=== PATIENT | female | born 1985 ===

== ENCOUNTER 2020-02-14 17:29 | Inpatient (IN) | payer OTHER ==
[2020-02-14] MEDS ORDERED: OXYTOCIN 30 UNITS in 0.9% NS 30 UNIT/500 ML INFUS.BAG IVPB ONE (18:20)
[2020-02-14] MEDS: ELECTROLYTE-148 SOLN 1,000 ML IV SCH (18:20)
--- NOTE | 2020-02-14 18:24 | HP ---
Past Medical History - Primary Care Physician PCP:: Karishma Garibay - Admission Chief Complaint: UC. Pt is seen today in the office BP 149/108 mmhg, denies STEVENSON, epigastric pain, visual disturbances. H/O IUFD @ 36 weeks History of Present Illness: 34 yo EDC 03/06/2020, EGA 37 weeks c/o mild UC; Pt is seen today in the office BP 149/108 mmhg, denies STEVENSON, epigastric pain, visual disturbances H/O IUFD @ 36 weeks PMHX - obesity PSHX - suction D+C, LEEP [employer] [facility] PROJECT MANAGER HX - G1 VTOP G2 IUFD @ 36 weeks G3 present Morbid obesity PIH Last sono - EFW 87% History Source: Patient Limitations to Obtaining History: No Limitations - Past Medical History ...: 3 ...Para: 1 ...Term: 0 ...: 1 ...Spon : 0 ...Induced : 1 ...Living Children: 0 ...Multiple Gestation: 0 ...LMP: 05/17/19 (unknown) ... Weeks Gestation by Dates: 37 ...EDC by Sono: 02/05/20 - Past Surgical History Past Surgical History: Yes: None Hx Myomectomy: No Hx Transabdominal Cerclage: No Additional Surgical History: Suction D+C for VTOP. LEEP - Smoking History Smoking history: Never smoked Have you smoked in the past 12 months: No - Alcohol/Substance Use Hx Alcohol Use: No History of Substance Use: reports: None - Social History Usual Living Arrangement: Yes: With Significant Other Occupation: Animal longterm History of Recent Travel: No Home Medications - Allergies Allergies/Adverse Reactions: Allergies Allergy/AdvReac Type Severity Reaction Status Date / Time No Known Allergies Allergy Verified 02/08/20 15:45 - Home Medications Home Medications: Ambulatory Orders Aspirin 1 tab PO DAILY 01/13/20 Folic Acid 1 tab PO DAILY 01/13/20 Vitamins (Sjr) - 1 tab PO DAILY 01/13/20 Pyridoxine HCl (B-6) [Vitamin B6 -] 1 tab PO DAILY 01/13/20 Family Medical History Family Hx Cardiac Disorders: Mother Family Hx Respiratory Disorders: Mother Review of Systems - Review of Systems Constitutional: reports: No Symptoms Eyes: reports: No Symptoms HENT: reports: No Symptoms Neck: reports: No Symptoms Cardiovascular: reports: No Symptoms Respiratory: reports: No Symptoms Gastrointestinal: reports: No Symptoms Genitourinary: reports: Pain Breasts: reports: No Symptoms Reported Musculoskeletal: reports: No Symptoms Integumentary: reports: No Symptoms Neurological: reports: No Symptoms Endocrine: reports: No Symptoms Hematology/Lymphatic: reports: No Symptoms Psychiatric: reports: No Symptoms Physical Exam - Maternity Constitutional: Yes: Well Nourished, No Distress Eyes: Yes: WNL HENT: Yes: WNL Neck: Yes: WNL Cardiovascular: Yes: WNL Lungs: Clear to auscultation Breast(s): Yes: WNL - Abdominal Exam/OB Fundal Height: 40 Number of Fetuses: Single Presentation: Vertex Contractions: Yes Regularity: Irregular Intensity: Mild Monitor Mode: External Heart Rate Location: [facility] Category: I Accelerations: Uniform Decelerations: None - Vaginal Exam/OB Vaginal Bleeding: No Dilatation (cm): 1-2 Effacement (%): 50 Amniotic Membrane Status: Intact Presentation: Vertex/Position Station: -1 - Physical Exam Musculoskeletal: Yes: WNL Extremities: Yes: WNL Edema: Yes Edema: LLE: 2+, RLE: 2+ Integumentary: Yes: WNL Deep Tendon Reflex Grade: Normal +2 ...Motor Strength: WNL Hemorrhage Risk Assessment - Risk Factors Medium Risk Factors: Yes: EFW greater than 4000g Risk Score: 1 Risk Level: Medium Risk Problem List - Problems (1) PIH ( induced hypertension), antepartum Code(s): O13.9 - GESTATIONAL HTN W/O SIGNIFICANT PROTEINURIA, UNSP TRIMESTER (2) History of IUFD Code(s): Z87.59 - PERSONAL HISTORY OF COMP OF PREG, CHLDBRTH AND THE PUERP (3) 37 weeks gestation of Code(s): Z3A.37 - 37 WEEKS GESTATION OF (4) Morbid obesity Code(s): E66.01 - MORBID (SEVERE) OBESITY DUE TO EXCESS CALORIES Assessment/Plan Admit to PIH labs Pitocin augmentation Close observation
[2020-02-14] MEDS: OXYTOCIN 30 UNITS in 0.9% NS 30 UNIT/500 ML INFUS.BAG IVPB SCH (18:30)
[2020-02-14 19:13] VITALS: BMI 40.7
[2020-02-14 19:42] LABS: BASO % 0.2 % (0-2.0); EOS % 0.1 % (0-4.5); HEMATOCRIT 34.2 % (32.4-45.2); HEMOGLOBIN 11.7 GM/dL (10.7-15.3); LYMPH % 10.5 % (8-40); MCH 29.1 pg (25.7-33.7); MCHC 34.1 g/dl (32.0-36.0); MEAN CELL VOLUME 85.2 fl (80-96); MEAN PLT VOLUME 11.8 fl (7.5-11.1); MONO % 5.2 % (3.8-10.2); PLATELET COUNT 149 K/MM3 (134-434); RBC 4.02 M/mm3 (3.60-5.2); WHITE BLOOD COUNT 9.5 K/mm3 (4.0-10.0)
[2020-02-14 19:56] LABS: INR 0.93 (0.83-1.09)
[2020-02-14 19:59] LABS: ACTIVATED PTT 28.1 SECONDS (25.2-36.5)
[2020-02-14 20:12] LABS: BLOOD UREA NITROGEN 12.9 mg/dL (7-18); CREATININE 0.6 mg/dL (0.55-1.3); POTASSIUM 4.5 mmol/L (3.5-5.1)
[2020-02-14 22:08] LABS: URIC ACID 4.4 mg/dL (2.6-7.2)
[2020-02-14] MEDS ORDERED: OXYTOCIN 20 UNITS in 0.9% NS 20 UNIT/1,000 ML INFUS.BAG IV ONE (23:28)
[2020-02-14] MEDS ORDERED: ceFAZolin 2 GRAM PREMIX BAG IVPB ONE (23:39)
[2020-02-14] MEDS ORDERED: CITRIC ACID/SODIUM CITRATE 30 ML UNIT-DOSE CUP PO ONE (23:40)
--- NOTE | 2020-02-14 23:48 | PN ---
Progress Note (short form) - Note Progress Note: Pt c/o mild UC BP 148/89, denies PIH symptoms EFM change on Baseline 90 - 100, no deceleration, marked variability, cat 2 TOCO irreg UC VE -2-3 cm, 80%, -1 AROM - clear fluid IFM apply Discussed at length the findings with pt and the FOB. Due to cat 2 tracing remote from delivery a decision for cesarian delivery made. Risks, benefits, alternatives of CD VS Vaginal delivery well understood by pt and FOB. All questions answered. Pt signed consent The anesthesia, plastics bench mechanic and certified surgical tech/first assistant called Problem List - Problems (1) PIH ( induced hypertension), antepartum Code(s): O13.9 - GESTATIONAL HTN W/O SIGNIFICANT PROTEINURIA, UNSP TRIMESTER (2) History of IUFD Code(s): Z87.59 - PERSONAL HISTORY OF COMP OF PREG, CHLDBRTH AND THE PUERP (3) 37 weeks gestation of Code(s): Z3A.37 - 37 WEEKS GESTATION OF (4) Morbid obesity Code(s): E66.01 - MORBID (SEVERE) OBESITY DUE TO EXCESS CALORIES
[2020-02-14] MEDS ORDERED: morphine SULFATE/PF 0.5 MG/ML (2cc Syringe - QUVA) EP ONE (23:55)
[2020-02-15] MEDS ORDERED: morphine SULFATE/PF 0.5 MG/ML (2cc Syringe - QUVA) ONE (00:01)
[2020-02-15] MEDS ORDERED: ceFAZolin SODIUM 1 GM VIAL ONE (00:02)
[2020-02-15] MEDS ORDERED: OXYTOCIN 10 UNITS/ML VIAL ONE (00:03)
--- NOTE | 2020-02-15 00:40 | PN ---
Progress Note (short form) - Note Progress Note: Attended rpt. C/S( previous C/s in labor)/ PIH for this 34yrs old mother with PNL-Nl, GBS- neg H/O GDM delivered - cried soon after suctioned & dried Cord 3V 9/9 PE exam: clinically stable - pink well perfused HEENT- normocephalic, AFOF, Chest B/L symm. B/L good air entry No heart murmur, All pulses 2+ No organomegaly Nl female FROM , nl hip exam Good tone and activity RNBC Watch for Resp distress Encourage BF/ Bonding Follow Blood sugar
[2020-02-15] MEDS: OXYTOCIN 20 UNITS in 0.9% NS 20 UNIT/1,000 ML INFUS.BAG IV SCH (01:20)
[2020-02-15] MEDS ORDERED: IBUPROFEN 800 MG/8 ML IJ IVPB PRN (01:26)
[2020-02-15] MEDS ORDERED: SENNOSIDES/DOCUSATE COMBO (SENNA PLUS) TABLET (UD) PO PRN (01:26)
[2020-02-15] MEDS ORDERED: oxyCODONE HCL 5 MG TABLET PO PRN (01:26)
[2020-02-15] MEDS ORDERED: MAGNESIUM HYDROX 2400MG/30ML ORAL SUSPENSION 30 ML CUP PO ONE (01:29)
[2020-02-15] MEDS ORDERED: ACETAMINOPHEN 1000 MG/100 ML VIAL (NON FORMULARY) IVPB PRN (01:30)
--- NOTE | 2020-02-15 01:36 | OP ---
Operative Note - Note: Operative Date: 02/15/20 Pre-Operative Diagnosis: 34 yo @ 37 weeks PIH. H/O IUFD @ 36 weeks. Cat 2 tracing remote from [facility] Operation: Primary C/S via Pfannenstiel incision Findings: Uterus, tubes, ovaries wnl Baby girl born 9/9 Cord gases and blood collected Placenta and membranes complete Surgeon: Karishma Garibay Chain Dyer: Hunter Parker Anesthesiologist/SERVICE ORDER TAKER: Trae Genao Anesthesia: Spinal Specimens Removed: Placenta and membranes. Cord gases and blood Estimated Blood Loss (mls): 800 Operative Report Dictated: No
[2020-02-15] MEDS ORDERED: OXYTOCIN 20 UNITS in 0.9% NS 20 UNIT/1,000 ML INFUS.BAG IV ONE (02:40)
[2020-02-15] MEDS: ONDANSETRON 4 MG/2 ML VIAL IVPUSH PRN ×2 (03:39→10:11)
[2020-02-15] MEDS: CEFAZOLIN 1 GM/D5W 1 GM/50 ML BAG IVPB SCH ×3 (03:45→17:45)
[2020-02-15 04:06] LABS: CORD BASE EXCESS -6.9 mmol/L (0-2); CORD PCO2 50.2 mmHg (30-78); CORD pH 7.24 (7.14-7.44)
--- NOTE | 2020-02-15 07:45 | PN ---
Progress Note (short form) - Note Progress Note: I assisted Dr. Garibay at c/section for the entirety of the case.
[2020-02-15] MEDS: ENOXAPARIN NA (PORCINE) 40 MG/0.4 ML DISP.SYRIN SQ SCH (10:15)
[2020-02-15] MEDS: SIMETHICONE 80 MG TAB.CHEW (FP) PO PRN ×2 (15:41→23:15)
[2020-02-15] MEDS: IBUPROFEN 600 MG TABLET (FP) PO PRN ×2 (15:41→23:16)
[2020-02-15] MEDS: ACETAMINOPHEN 325 MG TABLET (FP) PO PRN ×2 (15:42→23:15)
--- NOTE | 2020-02-15 17:38 | PN ---
Post Progress Note Type of Delivery: Primary C/S Vital Signs: Vital Signs Temperature 97.9 F 02/15/20 14:00 Pulse Rate 70 02/15/20 14:00 Respiratory Rate 20 02/15/20 17:00 Blood Pressure 118/63 02/15/20 14:00 O2 Sat by Pulse Oximetry (%) 97 02/15/20 14:00 Breast Exam: Yes: Soft Uterus: Yes: Fundus Firm, Fundus below umbilicus Incision: Yes: Dressing dry and intact Abdomen/GI: Yes: Abdomen soft, Tender Lochia: Yes: Rubra Lochia, amount: Small Extremities: Yes: Calves non-tender Activity: Ambulating - Labs Labs: CBC WBC 9.5 K/mm3 (4.0-10.0) 02/14/20 18:30 RBC 4.02 M/mm3 (3.60-5.2) 02/14/20 18:30 Hgb 11.7 GM/dL (10.7-15.3) 02/14/20 18:30 Hct 34.2 % (32.4-45.2) 02/14/20 18:30 MCV 85.2 fl (80-96) 02/14/20 18:30 MCH 29.1 pg (25.7-33.7) 02/14/20 18:30 MCHC 34.1 g/dl (32.0-36.0) 02/14/20 18:30 RDW 13.0 % (11.6-15.6) 02/14/20 18:30 Plt Count 149 K/MM3 (134-434) 02/14/20 18:30 MPV 11.8 fl (7.5-11.1) H 02/14/20 18:30 Absolute Neuts (auto) 8.0 K/mm3 (1.5-8.0) 02/14/20 18:30 Neutrophils % 84.0 % (42.8-82.8) H 02/14/20 18:30 Lymphocytes % 10.5 % (8-40) D 02/14/20 18:30 Monocytes % 5.2 % (3.8-10.2) 02/14/20 18:30 Eosinophils % 0.1 % (0-4.5) 02/14/20 18:30 Basophils % 0.2 % (0-2.0) 02/14/20 18:30 Nucleated RBC % 0 % (0-0) 02/14/20 18:30 Problem List - Problems (1) PIH ( induced hypertension), antepartum Code(s): O13.9 - GESTATIONAL HTN W/O SIGNIFICANT PROTEINURIA, UNSP TRIMESTER (2) History of IUFD Code(s): Z87.59 - PERSONAL HISTORY OF COMP OF PREG, CHLDBRTH AND THE PUERP (3) 37 weeks gestation of Code(s): Z3A.37 - 37 WEEKS GESTATION OF (4) Morbid obesity Code(s): E66.01 - MORBID (SEVERE) OBESITY DUE TO EXCESS CALORIES (5) delivery delivered Code(s): O82 - ENCOUNTER FOR DELIVERY WITHOUT INDICATION Assessment/Plan Ambulate Breast feeding
[2020-02-16] MEDS ORDERED: BISACODYL 10 MG SUPP.RECT RC PRN (01:26)
--- NOTE | 2020-02-16 03:36 | PN ---
Post Progress Note - Subjective Subjective: Happy, c/o incisional pain Type of Delivery: Primary C/S Vital Signs: Vital Signs Temperature 98 F 02/15/20 21:55 Pulse Rate 77 02/15/20 21:55 Respiratory Rate 18 02/15/20 21:55 Blood Pressure 146/77 02/15/20 21:55 O2 Sat by Pulse Oximetry (%) 99 02/15/20 21:55 Breast Exam: Yes: Soft Uterus: Yes: Fundus Firm, Fundus below umbilicus Incision: Yes: Dressing dry and intact Abdomen/GI: Yes: Abdomen soft, Tender Lochia: Yes: Rubra Lochia, amount: Small Extremities: Yes: Calves non-tender Activity: Ambulating - Labs Labs: CBC WBC 9.5 K/mm3 (4.0-10.0) 02/14/20 18:30 RBC 4.02 M/mm3 (3.60-5.2) 02/14/20 18:30 Hgb 11.7 GM/dL (10.7-15.3) 02/14/20 18:30 Hct 34.2 % (32.4-45.2) 02/14/20 18:30 MCV 85.2 fl (80-96) 02/14/20 18:30 MCH 29.1 pg (25.7-33.7) 02/14/20 18:30 MCHC 34.1 g/dl (32.0-36.0) 02/14/20 18:30 RDW 13.0 % (11.6-15.6) 02/14/20 18:30 Plt Count 149 K/MM3 (134-434) 02/14/20 18:30 MPV 11.8 fl (7.5-11.1) H 02/14/20 18:30 Absolute Neuts (auto) 8.0 K/mm3 (1.5-8.0) 02/14/20 18:30 Neutrophils % 84.0 % (42.8-82.8) H 02/14/20 18:30 Lymphocytes % 10.5 % (8-40) D 02/14/20 18:30 Monocytes % 5.2 % (3.8-10.2) 02/14/20 18:30 Eosinophils % 0.1 % (0-4.5) 02/14/20 18:30 Basophils % 0.2 % (0-2.0) 02/14/20 18:30 Nucleated RBC % 0 % (0-0) 02/14/20 18:30 Problem List - Problems (1) PIH ( induced hypertension), antepartum Code(s): O13.9 - GESTATIONAL HTN W/O SIGNIFICANT PROTEINURIA, UNSP TRIMESTER (2) History of IUFD Code(s): Z87.59 - PERSONAL HISTORY OF COMP OF PREG, CHLDBRTH AND THE PUERP (3) 37 weeks gestation of Code(s): Z3A.37 - 37 WEEKS GESTATION OF (4) Morbid obesity Code(s): E66.01 - MORBID (SEVERE) OBESITY DUE TO EXCESS CALORIES (5) delivery delivered Code(s): O82 - ENCOUNTER FOR DELIVERY WITHOUT INDICATION Assessment/Plan Ambulate Breast feeding Dulcolax supp
[2020-02-16 08:24] LABS: BASO % 0.2 % (0-2.0); EOS % 0.1 % (0-4.5); HEMATOCRIT 24.6 % (32.4-45.2); HEMOGLOBIN 8.2 GM/dL (10.7-15.3); LYMPH % 8.6 % (8-40); MCH 28.5 pg (25.7-33.7); MCHC 33.5 g/dl (32.0-36.0); MEAN CELL VOLUME 85.3 fl (80-96); MEAN PLT VOLUME 11.2 fl (7.5-11.1); MONO % 5.3 % (3.8-10.2); NEUT % 85.8 % (42.8-82.8); PLATELET COUNT 134 K/MM3 (134-434); RBC 2.88 M/mm3 (3.60-5.2); RDW 13.2 % (11.6-15.6); WHITE BLOOD COUNT 9.6 K/mm3 (4.0-10.0)
[2020-02-16] MEDS: IBUPROFEN 600 MG TABLET (FP) PO PRN ×3 (08:24→20:06)
[2020-02-16] MEDS: ACETAMINOPHEN 325 MG TABLET (FP) PO PRN ×3 (08:24→20:05)
[2020-02-16] MEDS: SIMETHICONE 80 MG TAB.CHEW (FP) PO PRN ×2 (08:25→13:51)
[2020-02-16 08:36] LABS: ALBUMIN 1.9 g/dl (3.4-5.0); BILIRUBIN,TOTAL 0.2 mg/dL (0.2-1); BLOOD UREA NITROGEN 7.1 mg/dL (7-18); CALCIUM 7.9 mg/dL (8.5-10.1); CREATININE 0.7 mg/dL (0.55-1.3); POTASSIUM 4.1 mmol/L (3.5-5.1); URIC ACID 4.7 mg/dL (2.6-7.2)
[2020-02-16] MEDS: ENOXAPARIN NA (PORCINE) 40 MG/0.4 ML DISP.SYRIN SQ SCH (09:35)
--- NOTE | 2020-02-16 14:35 | PN ---
Progress Note (short form) - Note Progress Note: Anesthesia Post Op Note Pt s/p spinal for c/s Pt w/o complaints of h/a; b/p; n/v; puritis Good paini control ambul no urinary retention VSS no apparent complications Sravanthi Mckeon.
[2020-02-16] MEDS: ELECTROLYTE-148 SOLN 1,000 ML IV SCH (16:04)
[2020-02-16] MEDS: OXYTOCIN 20 UNITS in 0.9% NS 20 UNIT/1,000 ML INFUS.BAG IV SCH (16:04)
[2020-02-16] MEDS: OXYTOCIN 30 UNITS in 0.9% NS 30 UNIT/500 ML INFUS.BAG IVPB SCH (16:04)
[2020-02-16] MEDS: LABETALOL HCL 200 MG TABLET (FP) PO SCH (23:46)
[2020-02-17] MEDS: OXYTOCIN 20 UNITS in 0.9% NS 20 UNIT/1,000 ML INFUS.BAG IV SCH (02:53)
[2020-02-17] MEDS: IBUPROFEN 600 MG TABLET (FP) PO PRN ×3 (02:57→23:07)
[2020-02-17] MEDS: ACETAMINOPHEN 325 MG TABLET (FP) PO PRN ×3 (02:57→23:07)
[2020-02-17] MEDS: LABETALOL HCL 200 MG TABLET (FP) PO SCH ×2 (09:33→22:27)
[2020-02-17] MEDS: ENOXAPARIN NA (PORCINE) 40 MG/0.4 ML DISP.SYRIN SQ SCH (09:34)
--- NOTE | 2020-02-17 09:51 | PN ---
Progress Note (short form) - Note Progress Note: asked by PMD to see this pt pod 2 this am. pt. states had a little headache when awoke, but better after eating. no cp, sob, visual disturbances or epigastric pain vss -af BP ok abd: soft, nt, nd fundus firm. +bs inc: c/d/i ve: min lochia ext: no calf tenderness b/l a/p pod 2 s/p csec following admission for elev BPs BP ok this am. one elev last night, but meds held when normal BP shortly thereafter pt stable. anemia diet and activity as melissa. will continue to watch BPs and any symptomatology closely today in house Dr. Garibay aware and any further mgmt per her. laborist on shift also notified.
[2020-02-17] MEDS: SIMETHICONE 80 MG TAB.CHEW (FP) PO PRN (23:07)
[2020-02-18] MEDS: ACETAMINOPHEN 325 MG TABLET (FP) PO PRN ×3 (08:00→20:46)
[2020-02-18] MEDS: IBUPROFEN 600 MG TABLET (FP) PO PRN ×2 (08:00→15:30)
[2020-02-18] MEDS: SIMETHICONE 80 MG TAB.CHEW (FP) PO PRN ×2 (08:01→15:30)
[2020-02-18 08:37] LABS: BASO % 0.4 % (0-2.0); EOS % 0.8 % (0-4.5); HEMATOCRIT 22.8 % (32.4-45.2); HEMOGLOBIN 7.7 GM/dL (10.7-15.3); LYMPH % 13.7 % (8-40); MCHC 33.9 g/dl (32.0-36.0); MEAN CELL VOLUME 85.6 fl (80-96); MEAN PLT VOLUME 9.9 fl (7.5-11.1); MONO % 5.2 % (3.8-10.2); NEUT % 79.9 % (42.8-82.8); PLATELET COUNT 194 K/MM3 (134-434); RBC 2.66 M/mm3 (3.60-5.2); RDW 12.9 % (11.6-15.6); WHITE BLOOD COUNT 6.8 K/mm3 (4.0-10.0)
[2020-02-18] MEDS: ENOXAPARIN NA (PORCINE) 40 MG/0.4 ML DISP.SYRIN SQ SCH (09:09)
[2020-02-18] MEDS: LABETALOL HCL 200 MG TABLET (FP) PO SCH ×3 (10:35→22:32)
--- NOTE | 2020-02-18 11:58 | PN ---
Post Progress Note - Subjective Subjective: Pt has no c/o looks pale, HCT 22 Post Day: 3 Type of Delivery: Primary C/S Vital Signs: Vital Signs Temperature 97.9 F 02/18/20 10:00 Pulse Rate 73 02/18/20 10:00 Respiratory Rate 18 02/17/20 22:00 Blood Pressure 132/83 02/18/20 10:00 O2 Sat by Pulse Oximetry (%) 99 02/15/20 21:55 Breast Exam: Yes: Soft Uterus: Yes: Fundus Firm, Fundus below umbilicus Incision: Yes: Sutures intact Abdomen/GI: Yes: Abdomen soft, Tolerating PO Lochia: Yes: Rubra Lochia, amount: Small Extremities: Yes: Calves non-tender Perineum: Yes: Intact Activity: Ambulating - Labs Labs: CBC WBC 6.8 K/mm3 (4.0-10.0) 02/18/20 08:03 RBC 2.66 M/mm3 (3.60-5.2) L 02/18/20 08:03 Hgb 7.7 GM/dL (10.7-15.3) L 02/18/20 08:03 Hct 22.8 % (32.4-45.2) L 02/18/20 08:03 MCV 85.6 fl (80-96) 02/18/20 08:03 MCH 29.0 pg (25.7-33.7) 02/18/20 08:03 MCHC 33.9 g/dl (32.0-36.0) 02/18/20 08:03 RDW 12.9 % (11.6-15.6) 02/18/20 08:03 Plt Count 194 K/MM3 (134-434) D 02/18/20 08:03 MPV 9.9 fl (7.5-11.1) D 02/18/20 08:03 Absolute Neuts (auto) 5.4 K/mm3 (1.5-8.0) 02/18/20 08:03 Neutrophils % 79.9 % (42.8-82.8) 02/18/20 08:03 Lymphocytes % 13.7 % (8-40) D 02/18/20 08:03 Monocytes % 5.2 % (3.8-10.2) 02/18/20 08:03 Eosinophils % 0.8 % (0-4.5) D 02/18/20 08:03 Basophils % 0.4 % (0-2.0) 02/18/20 08:03 Nucleated RBC % 0 % (0-0) 02/18/20 08:03 Problem List - Problems (1) PIH ( induced hypertension), antepartum Code(s): O13.9 - GESTATIONAL HTN W/O SIGNIFICANT PROTEINURIA, UNSP TRIMESTER (2) History of IUFD Code(s): Z87.59 - PERSONAL HISTORY OF COMP OF PREG, CHLDBRTH AND THE PUERP (3) 37 weeks gestation of Code(s): Z3A.37 - 37 WEEKS GESTATION OF (4) Morbid obesity Code(s): E66.01 - MORBID (SEVERE) OBESITY DUE TO EXCESS CALORIES (5) delivery delivered Code(s): O82 - ENCOUNTER FOR DELIVERY WITHOUT INDICATION Assessment/Plan Ambulate Breast feeding Rpt cbc, cmp in am tomorrow Observe BP
[2020-02-18] MEDS ORDERED: FUROSEMIDE 40 MG TABLET (FP) PO ONE (12:00)
[2020-02-18] MEDS: DOCUSATE SODIUM 100 MG CAPSULE (FP) PO SCH ×2 (12:45→22:31)
[2020-02-18] MEDS: FERROUS SO4 325 MG TABLET (FP) PO SCH (17:18)
[2020-02-18 21:10] LABS: BASO % 0.3 % (0-2.0); EOS % 1.2 % (0-4.5); HEMATOCRIT 22.9 % (32.4-45.2); HEMOGLOBIN 7.7 GM/dL (10.7-15.3); LYMPH % 16.3 % (8-40); MCH 29.2 pg (25.7-33.7); MCHC 33.7 g/dl (32.0-36.0); MEAN CELL VOLUME 86.7 fl (80-96); MEAN PLT VOLUME 9.9 fl (7.5-11.1); MONO % 5.7 % (3.8-10.2); NEUT % 76.5 % (42.8-82.8); PLATELET COUNT 219 K/MM3 (134-434); RBC 2.64 M/mm3 (3.60-5.2); RDW 13.6 % (11.6-15.6); WHITE BLOOD COUNT 7.5 K/mm3 (4.0-10.0)
[2020-02-18 22:00] LABS: ALBUMIN 2.2 g/dl (3.4-5.0); BILIRUBIN,TOTAL 0.2 mg/dL (0.2-1); BLOOD UREA NITROGEN 9.6 mg/dL (7-18); CREATININE 0.9 mg/dL (0.55-1.3); POTASSIUM 4.1 mmol/L (3.5-5.1); TOT PROT 5.7 g/dl (6.4-8.2)
[2020-02-19 01:07] VITALS: TEMP 97.6
[2020-02-19] MEDS: IBUPROFEN 600 MG TABLET (FP) PO PRN ×2 (03:37→09:31)
[2020-02-19] MEDS: ACETAMINOPHEN 325 MG TABLET (FP) PO PRN (03:38)
[2020-02-19] MEDS: SIMETHICONE 80 MG TAB.CHEW (FP) PO PRN (03:38)
[2020-02-19] MEDS: OXYTOCIN 30 UNITS in 0.9% NS 30 UNIT/500 ML INFUS.BAG IVPB SCH ×2 (03:44→03:45)
[2020-02-19] MEDS: ELECTROLYTE-148 SOLN 1,000 ML IV SCH (03:44)
[2020-02-19] MEDS: OXYTOCIN 20 UNITS in 0.9% NS 20 UNIT/1,000 ML INFUS.BAG IV SCH (03:45)
--- NOTE | 2020-02-19 07:15 | DS ---
Physical Examination Vital Signs: Vital Signs Temperature 97.6 F 02/18/20 22:00 Pulse Rate 85 02/18/20 22:00 Respiratory Rate 18 02/18/20 22:00 Blood Pressure 127/78 02/18/20 22:00 O2 Sat by Pulse Oximetry (%) 99 02/15/20 21:55 Constitutional: Yes: Well Nourished, No Distress Eyes: Yes: WNL HENT: Yes: WNL Neck: Yes: WNL Cardiovascular: Yes: WNL Respiratory: Yes: WNL Gastrointestinal: Yes: WNL Edema: LLE: 1+, RLE: 1+ Integumentary: Yes: WNL Wound/Incision: Yes: Clean/Dry, Well Approximated, Sutures Intact Neurological: Yes: WNL ...Motor Strength: WNL Psychiatric: Yes: WNL Labs: CBC, BMP 02/18/20 20:27 02/18/20 20:27 Discharge Summary Problems reviewed: Yes Reason For Visit: LABOR INDUCTION Current Active Problems 37 weeks gestation of (Acute) delivery delivered (Acute) History of IUFD (Acute) Morbid obesity (Acute) PIH ( induced hypertension), antepartum (Acute) Hospital Course: good Plan of Treatment: regular diet ambulate check blood pressure daily keep the incision dry - Instructions Diet, Activity, Other Instructions: regular diet ambulate check blood pressure daily keep the incision dry Disposition: HOME - Home Medications Comprehensive Discharge Medication List: Ambulatory Orders Aspirin 1 tab PO DAILY 01/13/20 Folic Acid 1 tab PO DAILY 01/13/20 Vitamins (Sjr) - 1 tab PO DAILY 01/13/20 Pyridoxine HCl (B-6) [Vitamin B6 -] 1 tab PO DAILY 01/13/20 Docusate Sodium [Colace] 100 mg PO BID PRN 20 Days #60 capsule 02/19/20 Ferrous Sulfate [Feosol] 325 mg PO DAILY #30 tablet 02/19/20 Ibuprofen [Motrin -] 600 mg PO QID PRN #28 tablet 02/19/20 Labetalol HCl [Normodyne -] 100 mg PO BID #60 tablet 02/19/20
[2020-02-19 08:10] LABS: BASO % 0.3 % (0-2.0); EOS % 0.9 % (0-4.5); HEMATOCRIT 22.8 % (32.4-45.2); HEMOGLOBIN 7.5 GM/dL (10.7-15.3); MCH 28.2 pg (25.7-33.7); MEAN CELL VOLUME 85.4 fl (80-96); MEAN PLT VOLUME 9.3 fl (7.5-11.1); MONO % 5.4 % (3.8-10.2); NEUT % 81.4 % (42.8-82.8); PLATELET COUNT 242 K/MM3 (134-434); RBC 2.66 M/mm3 (3.60-5.2); RDW 13.4 % (11.6-15.6); WHITE BLOOD COUNT 6.9 K/mm3 (4.0-10.0)
[2020-02-19 08:24] LABS: ALBUMIN 2.2 g/dl (3.4-5.0); BILIRUBIN,TOTAL 0.4 mg/dL (0.2-1); BLOOD UREA NITROGEN 8.2 mg/dL (7-18); CALCIUM 8.1 mg/dL (8.5-10.1); CREATININE 0.6 mg/dL (0.55-1.3); POTASSIUM 4.3 mmol/L (3.5-5.1); TOT PROT 5.7 g/dl (6.4-8.2)
[2020-02-19] MEDS: FERROUS SO4 325 MG TABLET (FP) PO SCH (09:31)
[2020-02-19] MEDS: LABETALOL HCL 200 MG TABLET (FP) PO SCH (09:31)
[2020-02-19] MEDS: ENOXAPARIN NA (PORCINE) 40 MG/0.4 ML DISP.SYRIN SQ SCH (09:31)
[2020-02-19] MEDS: DOCUSATE SODIUM 100 MG CAPSULE (FP) PO SCH (09:31)
[2020-02-19 13:20] VITALS: BP 125/77; PULSE 90
--- NOTE | 2020-02-19 18:41 | PATH ---
Surgical Pathology Report Patient Name: ANDI FARIAS Med. Rec. #: [id number] /Age/Gender: 1985 (Age: 34) / F Account: [id number] Location: [facility] OBS/SALES RELATIONSHIP MANAGER Taken: 02/15/2020 Received: 02/15/2020 Reported: 02/19/2020 Physicians: Karishma Garibay M.D. Specimen(s) Received PLACENTA Clinical History , 37 weeks gestation, 1-ind ab, 1 stillbirth Final Diagnosis PLACENTA, SECTION: 428 G THIRD TRIMESTER PLACENTA WITH TRIVASCULAR UMBILICAL CORD, FOCAL INTRAPARENCHYMAL INFARCT (~10 % OF PLACENTAL SURFACE), AND UNREMARKABLE PLACENTAL MEMBRANES. Electronically Signed Aysha Callejas M.D. Gross Description The specimen is received fresh labeled placenta and is a 428 gram, 16.0 x 14.5 x 2.7 cm. placenta with attached membranes and umbilical cord. The attached membranes are carey, translucent with focal opacities and insert marginally. The umbilical cord measures 16.5 cm. in length and averages 1 cm. in diameter. The cord inserts eccentrically, 3 cm. to the nearest margin. No true knots or strictures are identified. Cut surface of the umbilical cord reveals 3 vessels. The surface is delcid-blue with minimal fibrin deposition and appropriate caliber vessels. The maternal surface is red-brown with focal defects. Sectioning reveals a 1.3 cm in greatest dimension carey, firm intraparenchymal lesion. The remaining placental parenchyma is red-brown and spongy. White Sourer sections are submitted in three cassettes as follows: 1-membrane roll and umbilical cord; 2-lesion; 6-[id number]-[id number] section of placenta. /02/16/2020 saudi/02/16/2020
--- NOTE | 2020-02-22 18:44 | OP ---
DATE OF OPERATION: 02/15/2020 PREOPERATIVE DIAGNOSIS: A 34-year-old G3, para 0-1-1-0, at 37 weeks, -induced hypertension, history of intrauterine demise at 36 weeks, category 2 tracing remote from the delivery. POSTOPERATIVE DIAGNOSIS: A 34-year-old G3, para 0-1-1-0, at 37 weeks, -induced hypertension, history of intrauterine demise at 36 weeks, category 2 tracing remote from the delivery. SURGERY: Primary section by Pfannenstiel incision. SURGEON: Hugo Lockwood MD. UNIT EDUCATOR: Hunter Parker MD. ANESTHESIOLOGIST: Trae Genao MD. ANESTHESIA: Spinal. SPECIMENS REMOVED: Cord gases and blood, placenta and membrane. ESTIMATED BLOOD LOSS: 800 mL. FLUID: 1500 mL lactated Ringer's. URINE OUTPUT: At the end of the procedure 200 mL clear urine. FINDINGS: Uterus, tubes and ovaries within normal limits. Baby girl born 9 and 9. Cord gases and blood collected. DESCRIPTION OF PROCEDURE: The patient was taken to the operating room where spinal anesthesia was found to be adequate. She was prepped and draped in the usual sterile fashion in dorsal supine position with the leftward tilt. A Pfannenstiel skin incision was made with the scalpel and carried through to the underlying layer of fascia with the Bovie. The fascia was incised in the midline and the incision was extended laterally with Garcia scissors. The superior and inferior aspect of fascial incision was grasped with Ronnie clamps, elevated, and the underlying rectus muscles dissected off bluntly. Rectus muscles were then in the midline. The peritoneum visualized, grasped with pickups, and entered sharply with Metzenbaum scissors. The peritoneal incision was then extended superiorly and inferiorly with good visualization of the bladder. The bladder blade was inserted, and the vesicouterine peritoneum identified, grasped with pickups, and entered sharply with Metzenbaum scissors. This incision was then extended laterally, and the bladder flap created digitally. The bladder blade was then reinserted, the lower uterine segment incision transverse fashion with the scalpel. The uterine incision was then extended laterally with bandage scissors. The bladder blade was then removed, and the infant's head delivered atraumatically. The nose and mouth were suctioned and the cord clamped and cut. The infant was handed off to the awaiting subway repair supervisor. Placenta was then removed manually. The uterus exteriorized and cleared of all clot and debris. Uterine incision was repaired with 1-0 chromic in a running, locking fashion. A 2nd layer of the same suture was used to obtain hemostasis. The bladder flap was repaired with 2-0 chromic in a running stitch, and the uterus returned to the abdomen. The gutters were cleared of all clots, and the peritoneum closed with 2-0 chromic. The fascia was reapproximated with 0 Vicryl in a running fashion, and the skin was closed with 4-0 Vicryl in subcuticular fashion. The patient tolerated the procedure well. Sponge, lap, needle counts were correct x2. The patient was taken to the recovery room in stable condition. HUGO LOCKWOOD MD RP/[id number]
== END 2020-02-19 14:25 | disposition home or self-care (01) | DRG 788 ==
LOC: JLDR 17:29 → J3N 02-15 03:15 → J3W 02-16 17:35
PROVIDERS: ADMIT Obstetrics & Gynecology; ATTEND Obstetrics & Gynecology
PROC: 10907ZC Drainage of Amniotic Fluid, Therapeutic from Products of Conception, Via Natural or Artificial Opening (ICD-10-PCS; 2020-02-14)
PROC: 10D00Z1 Extraction of Products of Conception, Low, Open Approach (ICD-10-PCS; principal; 2020-02-15)
DX: O82 Encounter for cesarean delivery without indication (principal); O13.3 Gestational [pregnancy-induced] hypertension without significant proteinuria, third trimester; O76 Abnormality in fetal heart rate and rhythm complicating labor and delivery; O99.214 Obesity complicating childbirth; E66.01 Morbid (severe) obesity due to excess calories; O90.81 Anemia of the puerperium; D64.9 Anemia, unspecified; Z3A.37 37 weeks gestation of pregnancy; Z37.0 Single live birth; Z87.59 Personal history of other complications of pregnancy, childbirth and the puerperium
CPT/HCPCS: 36415; 36600; 80048; 80053; 82803; 84550; 85025; 85610; 85730; 86780; 86850; 86900; 86901; 88307-TC; U0003